=== PATIENT | male | born 2000 | race Caucasian/White ===

== ENCOUNTER 2018-03-10 23:20 | Emergency (ER) | payer OTHER ==
[~2018-03-10] VITALS: Ht 188 cm; Wt 68.0 kg
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
[2018-03-10] MEDS ORDERED: ETOMIDATE 2 MG/ML VIAL IV ONE (23:39)
[2018-03-10] MEDS ORDERED: ROCURONIUM BROMIDE 50 MG/5 ML IV ONE (23:39)
--- NOTE | 2018-03-10 23:44 | NUR ---
URINE SAMPLE COLLECTED AND SENT TO LAB
[2018-03-10 23:45] VITALS: BP 124/78
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
[2018-03-11 00:05] LABS: BASOPHILS % (AUTO) 0.5 % (0.0-2.0); EOSINOPHILS % (AUTO) 1.9 % (0.0-6.0); HEMATOCRIT 36 % (39-51); HEMOGLOBIN 11.4 g/dL (13.5-17.5); LYMPHOCYTES # (AUTO) 1.4 /CMM (0.8-4.8); LYMPHOCYTES % (AUTO) 22.7 % (20.0-44.0); MEAN CORPUSCULAR HGB CONC 32 g/dl (31.0-36.0); MEAN CORPUSCULAR VOLUME 75 fL (80-96); MONOCYTES # (AUTO) 0.5 /CMM (0.1-1.30); MONOCYTES % (AUTO) 7.4 % (2.0-12.0); NEUTROPHILS # (AUTO) 4.3 /CMM (1.8-8.9); NEUTROPHILS % (AUTO) 67.5 % (43.0-81.0); PLATELET COUNT (AUTO) 215 /CMM (150-450); RDW COEFFICIENT OF VARIATION 18.5 (11.5-15.0); RED BLOOD CELL COUNT(AUTO) 4.77 MIL/uL (4.5-6.0); WHITE BLOOD COUNT (AUTO) 6.4 K/uL (4.3-11.0)
--- NOTE | 2018-03-11 00:15 | NUR ---
LEFT HAND 20G IV PLACED AND RIGHT NARE NGT PLACED, PATENT AND INTACT
[2018-03-11 00:17] LABS: CARBON DIOXIDE 22 mmol/L (21-32); CHLORIDE 104 mmol/L (98-107); CREATININE 1.7 mg/dL (0.6-1.3); GLUCOSE 327 mg/dL (74-106); POTASSIUM 3.7 mmol/L (3.5-5.1); SODIUM SERUM 141 mmol/L (136-145); UREA NITROGEN, BLOOD 10 mg/dL (7-18)
[2018-03-11 00:19] LABS: INR 1.15 (0.87-1.13)
[2018-03-11 00:25] LABS: TROPONIN I 0.017 ng/mL (0.00-0.056)
[2018-03-11] MEDS ORDERED: IV NS 0.9% 1,000 ML BAG IV ONE ×2 (00:30→02:30)
[2018-03-11 00:33] LABS: ALANINE AMINOTRANSFERASE 30 U/L (12-78); ALBUMIN 3.4 g/dL (3.4-5.0); ALKALINE PHOSPHATASE 62 U/L (46-116); ASPARTATE AMINOTRANSFERASE 26 U/L (15-37); BILIRUBIN,DIRECT 0.2 mg/dL (0.0-0.2); BILIRUBIN,TOTAL 0.9 mg/dL (0.2-1.0)
[2018-03-11 00:44] LABS: THYROID STIMULATING HORMONE 6.053 uIU/mL (0.358-3.74)
[2018-03-11 00:45] LABS: ACETAMINOPHEN 0 ug/ml (10-30); ALCOHOL, BLOOD < 3 mg/dL (0-0); SALICYLATE 0.2 mg/dL (2.8-20.0)
[2018-03-11 00:46] LABS: APPEARANCE,URINE CLEAR (CLEAR); BILIRUBIN,URINE NEGATIVE (NEGATIVE); BLOOD, URINE TRACE-INTA Ery/uL (NEGATIVE); COLOR,URINE YELLOW (YELLOW); KETONES,URINE NEGATIVE (NEGATIVE); LEUKOCYTE ESTERASE ,URINE NEGATIVE (NEGATIVE); NITRITE, URINE NEGATIVE (NEGATIVE); PROTEIN,URINE 2+ mg/dl (NEGATIVE); UGLUCOSE 3+ mg/dL (NEGATIVE); UROBILINOGEN,URINE 0.2 EU/dL (0.2)
[2018-03-11 00:56] LABS: BACTERIA,URINE None seen /HPF (None Seen); SQUAMOUS EPITHELIAL CELL,UR Few /HPF (None Seen); WBC,URINE 0-2 /HPF (0-3)
[2018-03-11] MEDS ORDERED: PROPOFOL 100 ML ONE ×2 (00:58→05:44)
[2018-03-11] MEDS ORDERED: PROPOFOL 100 ML IV PRN (01:00)
--- NOTE | 2018-03-11 01:04 | NUR ---
PT WAKING UP, PLACED ON PROPOFOL FOR SAFETY AND COMFORT
[2018-03-11] MEDS ORDERED: MAG HYDROX/AL HYDROX/SIMETH 30 ML UDC PO PRN (01:30)
[2018-03-11] MEDS ORDERED: HYDROCODONE/APAP 5/325MG 1 EACH TABLET PO PRN (01:30)
[2018-03-11] MEDS ORDERED: MAGNESIUM HYDROXIDE 30 ML UDC PO PRN (01:30)
[2018-03-11] MEDS ORDERED: IV NS 0.9% 1,000 ML IV SCH (01:30)
[2018-03-11] MEDS ORDERED: ZOLPIDEM TARTRATE 5 MG TABLET PO PRN (01:30)
[2018-03-11] MEDS ORDERED: ACETAMINOPHEN 325 MG TABLET PO PRN (01:30)
[2018-03-11] MEDS ORDERED: Z GUARD REMEDY 2 OZ OINT TP PRN (01:30)
[2018-03-11] MEDS ORDERED: ONDANSETRON HCL/PF 4 MG/2 ML VIAL IVP PRN (01:30)
[2018-03-11 01:48] VITALS: BP 121/62
[2018-03-11] MEDS ORDERED: VANCOMYCIN 1 GM in IV D5W 250 ML IV ONE (02:00)
[2018-03-11] MEDS ORDERED: PIPERACILLIN /TAZOBACTAM 3.375 G in IV D5W 50 ML IV ONE (02:00)
--- NOTE | 2018-03-11 02:02 | NUR ---
[facility] , EXPECTING A CALL BACK FROM A [facility]
[2018-03-11] MEDS ORDERED: ETOMIDATE 2 MG/ML VIAL IV ONE (03:00)
[2018-03-11] MEDS ORDERED: ROCURONIUM BROMIDE 50 MG/5 ML IV ONE (03:00)
[2018-03-11 03:11] LABS: ABG BASE EXCESS -6.1 mmol/L; ABG OXYGEN SATURATION 99.3 % (92.0-98.5); ABG PCO2 42.6 mmHg (35.0-45.0); ABG PH 7.293 (7.350-7.450); ABG PO2 442.1 mmHg (75.0-100.0); AaDO2 228.3 mmHg; COHb 0.2 % (0.5-1.5); MetHb 0.6 % (0.0-1.5); O2Hb 98.5 % (94.0-97.0); PEEP,BG 0 cm H2O; SITE, ABG Left Radial; VT, ABG 500 mL
--- NOTE | 2018-03-11 03:15 | NUR ---
CALLED [facility], PER STAVE AND [employer] THEY ARE STILL TRYING TO FIND AN ICU BED, AWAITING CALL BACK.
[2018-03-11] MEDS ORDERED: VANCOMYCIN 1 GM VIAL ONE (03:56)
[2018-03-11] MEDS ORDERED: PIPERACILLIN /TAZOBACTAM 3.375 G VIAL IV ONE (03:56)
--- NOTE | 2018-03-11 04:39 | NUR ---
[place] [id number] [phone] CCT RN 545 AYAN
--- NOTE | 2018-03-11 05:30 | NUR ---
REPORT GIVEN TO [facility] FOR [facility] FOR TRANSFER TO [place].
--- NOTE | 2018-03-11 05:54 | NUR ---
PATIENT LEFT SOH IN STABLE CONDITION BY [facility] TRANSPORT
== END 2018-03-11 05:57 | disposition short-term general hospital (02) ==
LOC: ER 23:38 → ICU 03-11 02:03 → UNDOADMIN 03-11 02:03 → ER 03-11 05:57
DX: J96.00 Acute respiratory failure, unspecified whether with hypoxia or hypercapnia (principal); A41.9 Sepsis, unspecified organism; R65.21 Severe sepsis with septic shock; F19.10 Other psychoactive substance abuse, uncomplicated; F14.10 Cocaine abuse, uncomplicated; E11.9 Type 2 diabetes mellitus without complications; E03.9 Hypothyroidism, unspecified; D64.9 Anemia, unspecified; N28.9 Disorder of kidney and ureter, unspecified; R94.02 Abnormal brain scan
CPT/HCPCS: 36415; 36600; 70450-TC; 71045-TC; 72125-TC; 80048-TC; 80076-TC; 80305; 81000-TC; 82803-TC; 82962-TC; 83605-TC; 84443-TC; 84484-TC; 85025-TC; 85730-TC; 87040-TC; 87086-TC; 94002-TC; A4606; G0480; J2543; J3370; J3490; J7030; J7060; L0172; Z7610